=== PATIENT | female | born 1995 ===

== ENCOUNTER 2018-07-17 09:15 | Observation (INO) | payer MEDICAID ==
--- NOTE | 2018-07-17 11:07 | C.PDOC ---
History Of Present Illness 22 y/o female presents to the ED for evaluation of back pain associated with worsening nausea and vomiting since last week. Patient is currently , approximately 6 weeks by date. Of note, patient was seen in the clinic but has not yet had an ultrasound for this . She denies any fever or chills. Patient also reports mild pain to the lower abdomen as well as a headache. She denies any dizziness, chest pain, SOB, or diarrhea. No associated vaginal bleeding or discharge. Time Seen by Provider: 07/17/18 10:28 Chief Complaint (Nursing): Abdominal Pain History Per: Patient History/Exam Limitations: no limitations Onset/Duration Of Symptoms: Days Current Symptoms Are (Timing): Still Present Location Of Pain/Discomfort: Suprapubic Radiation Of Pain To:: Back Associated Symptoms: Nausea, Vomiting Past Medical History Reviewed: Historical Data, Nursing Documentation, Vital Signs Vital Signs: Last Vital Signs Temp 99.9 F H 07/17/18 09:19 Pulse 119 H 07/17/18 09:19 Resp 18 07/17/18 09:19 BP 115/76 07/17/18 09:19 Pulse Ox 98 07/17/18 09:19 - Medical History PMH: No Chronic Diseases Surgical History: No Surg Hx Family History: States: Unknown Family Hx - Social History Hx Tobacco Use: No Hx Alcohol Use: No Hx Substance Use: No - Immunization History Hx Tetanus Toxoid Vaccination: No Hx Influenza Vaccination: No Hx Pneumococcal Vaccination: No Review Of Systems Except As Marked, All Systems Reviewed And Found Negative. Constitutional: Negative for: Fever, Chills Cardiovascular: Negative for: Chest Pain Respiratory: Negative for: Cough, Shortness of Breath Gastrointestinal: Positive for: Nausea, Vomiting, Abdominal Pain (lower). Negative for: Diarrhea, Hematemesis Genitourinary: Negative for: Dysuria, Frequency, Vaginal Discharge, Vaginal Bleeding Musculoskeletal: Positive for: Back Pain Neurological: Positive for: Headache. Negative for: Weakness, Dizziness Physical Exam - Physical Exam Appears: Non-toxic, No Acute Distress Skin: Warm, Dry, No Rash Head: Atraumatic, Normacephalic Eye(s): bilateral: Normal Inspection, PERRL, EOMI Nose: Normal Oral Mucosa: Moist Neck: Normal ROM Chest: Symmetrical Cardiovascular: Rhythm Regular, No Murmur Respiratory: Normal Breath Sounds, No Accessory Muscle Use Gastrointestinal/Abdominal: Soft, Tenderness (suprapubic), No Guarding, No Rebound Back: Normal Inspection, No CVA Tenderness, No Vertebral Tenderness Extremity: Bilateral: Atraumatic, Normal Color And Temperature Neurological/Psych: Oriented x3, Normal Speech ED Course And Treatment - Laboratory Results Result Diagrams: 07/17/18 11:27 07/17/18 11:27 ECG Rhythm: Sinus Tachycardia Rate From EC O2 Sat by Pulse Oximetry: 98 (RA) Pulse Ox Interpretation: Normal - CT Scan/US Pelvic/Transvag US Other Rad Studies (CT/US): Read By Radiologist, Radiology Report Reviewed CT/US Interpretation: Accession No. : [id number]. Patient Name / ID : NOLVIA CHOE / [id number]. Exam Date : 07/17/2018 12:13:17 ( Approved ). Study Comment : Sex / Age : F / 22Y. Creator : Jackelyn Knowles MD. Dictator : Jackelyn Knowles MD. Rn Mobile : Elastic Attacher Chainstitch : Jackelyn Knowles MD. Approver2 : Report Date : 07/17/2018 12:57:39. My Comment : . Date of service: 07/17/2018. Indication: pelvic and low back pain, vomiting. Comparison: None available. Technique: Real-time transabdominal pelvic ultrasound was performed. In addition a transvaginal pelvic ultrasound was necessary to better depict pelvic anatomy. Findings: The uterus measures approximately 7.8 x 4.9 x 6.7 cm. Retroverted. Cervix length measures approximately 3.1 cm. There is a single intrauterine fetus present. 2 mm yolk sac. The gestational sac measures 2.1 cm and is compatible with a gestational age of 6 weeks 4 days. The crown-rump length measures 0.5 cm and is compatible with a gestational age of 6 weeks 2 days. 0.4 x 0.3 cm subchorionic hemorrhage noted. There is heart motion which measured 126.3 BPM. The right ovary measures 3.3 x 2.5 x 3.0 cm. The left ovary measures 3.1 x 1.7 x 3.3 cm and contains 1.4 x 1.9 x 2.1 cm probable corpus luteal cyst. Blood flow demonstrated to both ovaries. Impression: Live single intrauterine with estimated gestational age 6 weeks 4 days by gestational sac calculation and 6 weeks 2 days by crown-rump length calculation. heart rate 126.3 bpm. 0.4 x 0.3 cm subchorionic hemorrhage noted. Advise an anomaly screen at 16-18 weeks gestational age. 1.4 x 1.9 x 2.1 cm probable corpus luteal cyst. Progress Note: Blood work and urine sent for analysis. Administered 1 bolus IVF and 4 mg IV zofran. Pending Pelvic/Transvag ultrasound. Labs reviewed. Beta-HCG is 60,058. Ultrasound shows IUP with gestational age 6 weeks 4 days. + heart rate 126bpm. 13:45 Informed by RN that on repeat vitals, patient spiked a high fever with temp of 102, and blood pressure has decreased to 88/54. VBG and flu swab ordered. Administered 2nd liter IV fluids and 975mg PO Tylenol. Blood gas is unremarkable, lactate is wnl. Still pending flu result. 14:33 + flu A. Patient informed of result. 3rd bolus IV fluids infusing. On repeat vitals, patient is still tachycardic. Discussed case with ED attending Dr. Cabrera, recommends LR fluids. 18:00 Patient is persistently tachycardic despite receiving 4L of fluids. Spoke with Dr. Bart Campbell, patient accepted to serv ice under Dr. Stevens. Spoke with OBGYN , will consult. - Physician Consult Information Physician Contacted: Bart Campbell Outcome Of Conversation: accepted to hospitalist service Disposition - Disposition Disposition Time: 18:15 Condition: FAIR - Clinical Impression Clinical Impression: Influenza A, Early stage of , Tachycardia - PA / INFORMATION MANAGEMENT MANAGER / Resident Statement MD/DO has reviewed & agrees with the documentation as recorded. - Scribe Statement The provider has reviewed the documentation as recorded by the Scribe Homa Piper All medical record entries made by the Lorenzaibnatalio were at my direction and personally dictated by me. I have reviewed the chart and agree that the record accurately reflects my personal performance of the history, physical exam, medical decision making, and the department course for this patient. I have also personally directed, reviewed, and agree with the discharge instructions and disposition. Decision To Admit - Pt Status Changed To: Hospital Disposition Of: Observation - . Bed Request Type: Telemetry Admitting Physician: Vernon Stevens Patient Diagnosis: Influenza A, Early stage of , Tachycardia
[2018-07-17] MEDS ORDERED: Sodium Chloride 0.9% 1,000 ML IV STA ×3 (11:18→14:57)
[2018-07-17 11:37] LABS: BASO % 0.6 % (0.0-2.0); EOS % 0.3 % (0.0-4.0); HEMOGLOBIN 13.5 g/dL (11.0-16.0); LYMPH # 0.4 K/uL (1.0-4.3); MEAN CELL VOLUME 95.7 fL (81.0-99.0); MEAN CORPUSCULAR HEMOGLOBIN 32.4 pg (27.0-31.0); MEAN CORPUSCULAR HGB CONC 33.8 g/dL (33.0-37.0); MEAN PLATELET VOLUME 8.7 fL (7.2-11.7); MONO # 0.6 K/uL (0.0-0.8); MONO % 15.3 % (0.0-10.0); NEUT # 2.8 K/uL (1.8-7.0); NEUT % 72.8 % (50.0-75.0); NRBC % 0.1 % (0.0-2.0); RBC 4.18 Mil/uL (3.80-5.20); RED CELL DISTRIBUTION WIDTH 12.3 % (11.5-14.5); WHITE BLOOD COUNT 3.9 K/uL (4.8-10.8)
[2018-07-17 11:38] LABS: HCG,QUALITATIVE URINE POSITIVE (NEGATIVE)
[2018-07-17 11:42] LABS: SQUAMOUS EPITHIAL 6 /hpf (0-5); URINE BACTERIA RARE (<OCC); URINE BILIRUBIN NEGATIVE (NEGATIVE); URINE BLOOD NEGATIVE (NEGATIVE); URINE CLARITY Hazy (Clear); URINE COLOR Amber (YELLOW); URINE GLUCOSE (UA) NORMAL (Normal); URINE LEUKOCYTE ESTERASE NEG Leu/uL (Negative); URINE PROTEIN 1+ mg/dL (NEGATIVE)
[2018-07-17] MEDS ORDERED: Sodium Chloride 0.9% 1,000 ML ONE ×2 (11:44→15:16)
[2018-07-17 11:53] LABS: ALB/GLOB RATIO 1.5 (1.0-2.1); ALBUMIN 4.6 g/dL (3.5-5.0); ALT/SGPT 19 U/L (9-52); AST/SGOT 26 U/L (14-36); BLOOD UREA NITROGEN 5 mg/dL (7-17); CALCIUM 9.3 mg/dl (8.6-10.4); GFR NON-AFRICAN AMERICAN > 60
--- NOTE | 2018-07-17 13:01 | US ---
Date of service: 07/17/2018 Indication: pelvic and low back pain, vomiting Comparison: None available Technique: Real-time transabdominal pelvic ultrasound was performed. In addition a transvaginal pelvic ultrasound was necessary to better depict pelvic anatomy. Findings: The uterus measures approximately 7.8 x 4.9 x 6.7 cm. Retroverted. Cervix length measures approximately 3.1 cm. There is a single intrauterine fetus present. 2 mm yolk sac. The gestational sac measures 2.1 cm and is compatible with a gestational age of 6 weeks 4 days. The crown-rump length measures 0.5 cm and is compatible with a gestational age of 6 weeks 2 days. 0.4 x 0.3 cm subchorionic hemorrhage noted. There is heart motion which measured 126.3 BPM. The right ovary measures 3.3 x 2.5 x 3.0 cm. The left ovary measures 3.1 x 1.7 x 3.3 cm and contains 1.4 x 1.9 x 2.1 cm probable corpus luteal cyst. Blood flow demonstrated to both ovaries. Impression: Live single intrauterine with estimated gestational age 6 weeks 4 days by gestational sac calculation and 6 weeks 2 days by crown-rump length calculation. heart rate 126.3 bpm. 0.4 x 0.3 cm subchorionic hemorrhage noted. Advise an anomaly screen at 16-18 weeks gestational age 1.4 x 1.9 x 2.1 cm probable corpus luteal cyst.
[2018-07-17 14:08] LABS: VENOUS BLOOD GAS BASE EXCESS -1.3 mmol/L (0.0-2.0); VENOUS BLOOD GAS PCO2 46 mmHg (40-60); VENOUS BLOOD GAS PO2 22 mm/Hg (30-55); VENOUS BLOOD PH 7.34 (7.32-7.43)
[2018-07-17] MEDS ORDERED: Lactated Ringer's 1,000 ML IV ONE (17:01)
[2018-07-17] MEDS ORDERED: Lactated Ringer's 1,000 ML ONE (17:13)
[2018-07-17 17:45] LABS: VENOUS BLOOD GAS BASE EXCESS -4.1 mmol/L (0.0-2.0); VENOUS BLOOD GAS PCO2 41 mmHg (40-60); VENOUS BLOOD GAS PO2 31 mm/Hg (30-55); VENOUS BLOOD PH 7.33 (7.32-7.43)
--- NOTE | 2018-07-17 19:31 | CP.PCM.HP ---
<AubreeRicky - Last Filed: 07/17/18 22:34> History of Present Illness - History of Present Illness History of Present Illness: PGY-1 History and Physical for Dr. Stevens Patient is a 22 year old female with no significant past medical history presenting to ED with lower back pain with associated nausea and NBNB vomiting that began last . The vomiting is worse after meals. She also endorses mild headaches. Patient is approximately 6 weeks and has been seen in this clinic where she received multivitamins but has yet to have ultrasound for this . No fevers/chills, dizziness, chest pain, palpitations, sob, cough, dysuria, abnormal discharge or bleeding, dyspareunia, pelvic pain, or changes in bowel habit. PMHx: None PSHX: None Allergies: NKDA Home Meds: Family Hx: unknown Social Hx: denies alcohol, tobacco, or illicit drug use PMD: Clinic Present on Admission - Present on Admission Any Indicators Present on Admission: No Review of Systems - Review of Systems All systems: reviewed and no additional remarkable complaints except Review of Systems: as per HPI Past Patient History - Past Social History Smoking Status: Never Smoked - PSYCHIATRIC Hx Substance Use: No - SURGICAL HISTORY Hx Surgeries: No - ANESTHESIA Hx Anesthesia: No Meds Allergies/Adverse Reactions: Allergies Allergy/AdvReac Type Severity Reaction Status Date / Time No Known Allergies Allergy Unverified 07/17/18 09:23 Physical Exam - Constitutional Appears: Non-toxic, No Acute Distress - Head Exam Head Exam: ATRAUMATIC, NORMAL INSPECTION, NORMOCEPHALIC - Eye Exam Eye Exam: EOMI, Normal appearance, PERRL Pupil Exam: NORMAL ACCOMODATION - ENT Exam ENT Exam: Mucous Membranes Moist, Normal Exam - Neck Exam Neck exam: Positive for: Full Rom, Normal Inspection. Negative for: Lymphadenopathy, Tenderness, Thyromegaly - Respiratory Exam Respiratory Exam: Clear to Auscultation Bilateral, NORMAL BREATHING PATTERN. absent: Accessory Muscle Use, Rales, Rhonchi, Wheezes, Respiratory Distress, Stridor - Cardiovascular Exam Cardiovascular Exam: Tachycardia, +S1, +S2 - GI/Abdominal Exam GI & Abdominal Exam: Normal Bowel Sounds, Soft, Tenderness (suprapubic). absent: Distended, Firm, Guarding, Rebound, Rigid - Exam External exam: NORMAL EXTERNAL EXAM. absent: Erythema, Lacerations, Lesions - Extremities Exam Extremities exam: Positive for: normal capillary refill, normal inspection, pedal pulses present. Negative for: calf tenderness, pedal edema - Back Exam Back exam: NORMAL INSPECTION. absent: CVA tenderness (L), CVA tenderness (R) - Neurological Exam Neurological exam: Alert, CN II-XII Intact, Oriented x3 - Psychiatric Exam Psychiatric exam: Normal Affect, Normal Mood - Skin Skin Exam: Dry, Intact, Normal Color, Warm Results - Vital Signs Recent Vital Signs: Last Vital Signs Temp 100.1 F H 07/17/18 17:55 Pulse 120 H 07/17/18 17:55 Resp 18 07/17/18 17:55 BP 112/65 07/17/18 17:55 Pulse Ox 98 07/17/18 19:02 - Labs Result Diagrams: 07/17/18 11:27 07/17/18 11:27 Labs: Laboratory Results - last 24 hr 07/17/18 07/17/18 07/17/18 11:27 11:27 11:27 WBC 3.9 L RBC 4.18 Hgb 13.5 Hct 40.0 MCV 95.7 MCH 32.4 H MCHC 33.8 RDW 12.3 Plt Count 224 MPV 8.7 Neut % (Auto) 72.8 Lymph % (Auto) 11.0 L [place] % (Auto) 15.3 H Eos % (Auto) 0.3 Baso % (Auto) 0.6 Neut # (Auto) 2.8 Lymph # (Auto) 0.4 L [place] # (Auto) 0.6 Eos # (Auto) 0.0 Baso # (Auto) 0.0 pO2 VBG pH VBG pCO2 VBG HCO3 VBG Total CO2 VBG O2 Sat (Calc) VBG Base Excess VBG Potassium Glucose Lactate Sodium 134 Potassium 3.8 Chloride 100 Carbon Dioxide 24 Anion Gap 15 BUN 5 L Creatinine 0.6 L Est GFR ( Amer) > 60 Est GFR (Non-Af Amer) > 60 Random Glucose 87 Calcium 9.3 Total Bilirubin 0.6 AST 26 ALT 19 Alkaline Phosphatase 57 Total Protein 7.7 Albumin 4.6 Globulin 3.1 Albumin/Globulin Ratio 1.5 TSH 3rd Generation Beta HCG, Quant 90368.00 Venous Blood Potassium Urine Color Sol Urine Clarity Hazy Urine pH 6.0 Ur Specific [place] 1.028 Urine Protein 1+ H Urine Glucose (UA) Normal Urine Ketones 2+ H Urine Blood Negative Urine Nitrate Negative Urine Bilirubin Negative Urine Urobilinogen 2.0 H Ur Leukocyte Esterase Neg Urine WBC (Auto) 2 Urine RBC (Auto) 3 Ur Squamous Epith Cells 6 H Urine Bacteria Rare Urine HCG, Qual Positive Influenza Typ A,B (EIA) 07/17/18 07/17/18 07/17/18 14:03 14:04 17:41 WBC RBC Hgb Hct MCV MCH MCHC RDW Plt Count MPV Neut % (Auto) Lymph % (Auto) [place] % (Auto) Eos % (Auto) Baso % (Auto) Neut # (Auto) Lymph # (Auto) [place] # (Auto) Eos # (Auto) Baso # (Auto) pO2 22 L 31 VBG pH 7.34 7.33 VBG pCO2 46 41 VBG HCO3 22.2 20.6 VBG Total CO2 26.2 22.9 VBG O2 Sat (Calc) 42.4 66.9 H VBG Base Excess -1.3 L -4.1 L VBG Potassium 3.3 L 3.2 L Glucose 77 97 Lactate 1.9 1.2 Sodium 136.0 137.0 Potassium Chloride 104.0 110.0 H Carbon Dioxide Anion Gap BUN Creatinine Est GFR ( Amer) Est GFR (Non-Af Amer) Random Glucose Calcium Total Bilirubin AST ALT Alkaline Phosphatase Total Protein Albumin Globulin Albumin/Globulin Ratio TSH 3rd Generation Beta HCG, Quant Venous Blood Potassium 3.3 L 3.2 L Urine Color Urine Clarity Urine pH Ur Specific [place] Urine Protein Urine Glucose (UA) Urine Ketones Urine Blood Urine Nitrate Urine Bilirubin Urine Urobilinogen Ur Leukocyte Esterase Urine WBC (Auto) Urine RBC (Auto) Ur Squamous Epith Cells Urine Bacteria Urine HCG, Qual Influenza Typ A,B (EIA) Pos for influenza a H 07/17/18 18:26 WBC RBC Hgb Hct MCV MCH MCHC RDW Plt Count MPV Neut % (Auto) Lymph % (Auto) [place] % (Auto) Eos % (Auto) Baso % (Auto) Neut # (Auto) Lymph # (Auto) [place] # (Auto) Eos # (Auto) Baso # (Auto) pO2 VBG pH VBG pCO2 VBG HCO3 VBG Total CO2 VBG O2 Sat (Calc) VBG Base Excess VBG Potassium Glucose Lactate Sodium Potassium Chloride Carbon Dioxide Anion Gap BUN Creatinine Est GFR ( Amer) Est GFR (Non-Af Amer) Random Glucose Calcium Total Bilirubin AST ALT Alkaline Phosphatase Total Protein Albumin Globulin Albumin/Globulin Ratio TSH 3rd Generation 0.40 L Beta HCG, Quant Venous Blood Potassium Urine Color Urine Clarity Urine pH Ur Specific [place] Urine Protein Urine Glucose (UA) Urine Ketones Urine Blood Urine Nitrate Urine Bilirubin Urine Urobilinogen Ur Leukocyte Esterase Urine WBC (Auto) Urine RBC (Auto) Ur Squamous Epith Cells Urine Bacteria Urine HCG, Qual Influenza Typ A,B (EIA) Assessment & Plan - Assessment and Plan (Free Text) Assessment: 22 year old female with no pmhx presenting with back pain associated with worsening nausea/vomiting for 1 week, found to be flu positive. Plan: Influenza -patient febrile, T max 102.7 -no leukocytosis noted -serology: influenza A positive -Droplet precautions -UA: 1+ protein, 2+ketones, rare bacteria -f/u BCx, Urine Cx -IVF -Tamiflu 75 mg PO BID x 5 days -Tylenol q6h prn for fevers -zofran 4 mg IVP q4 prn for nausea Intrauterine -Pelvic/transvaginal U/S: Live single intrauterine with estimated gestational age 6 weeks 4 days by gestational sac calculation and 6 weeks 2 days by crown-rump length calculation. heart rate 126.3 bpm. 0.4 x 0.3 cm subchorionic hemorrhage noted. Advise an anomaly screen at 16-18 weeks gestational age. 1.4 x 1.9 x 2.1 cm probable corpus luteal cyst. -GEOPHYSICAL ENGINEER (Dr. Garland) consulted PPx, Diet, Disposition -DVT ppx: scds -GI ppx: not indicated -Diet: HHD Case discussed with Dr. Rodney Mak DO, PGY-1 <Vernon Stevens P - Last Filed: 07/18/18 08:59> Results - Vital Signs Recent Vital Signs: Last Vital Signs Temp 98.5 F 07/18/18 08:04 Pulse 95 H 07/18/18 08:04 Resp 20 07/18/18 08:04 BP 91/54 L 07/18/18 08:04 Pulse Ox 98 07/18/18 08:04 - Labs Result Diagrams: 07/18/18 05:42 07/18/18 05:42 Labs: Laboratory Results - last 24 hr 07/17/18 07/17/18 07/17/18 11:27 11:27 11:27 WBC 3.9 L RBC 4.18 Hgb 13.5 Hct 40.0 MCV 95.7 MCH 32.4 H MCHC 33.8 RDW 12.3 Plt Count 224 MPV 8.7 Neut % (Auto) 72.8 Lymph % (Auto) 11.0 L [place] % (Auto) 15.3 H Eos % (Auto) 0.3 Baso % (Auto) 0.6 Neut # (Auto) 2.8 Lymph # (Auto) 0.4 L [place] # (Auto) 0.6 Eos # (Auto) 0.0 Baso # (Auto) 0.0 pO2 VBG pH VBG pCO2 VBG HCO3 VBG Total CO2 VBG O2 Sat (Calc) VBG Base Excess VBG Potassium Glucose Lactate Sodium 134 Potassium 3.8 Chloride 100 Carbon Dioxide 24 Anion Gap 15 BUN 5 L Creatinine 0.6 L Est GFR ( Amer) > 60 Est GFR (Non-Af Amer) > 60 Random Glucose 87 Calcium 9.3 Phosphorus Magnesium Total Bilirubin 0.6 AST 26 ALT 19 Alkaline Phosphatase 57 Total Protein 7.7 Albumin 4.6 Globulin 3.1 Albumin/Globulin Ratio 1.5 Free T4 TSH 3rd Generation Beta HCG, Quant 77683.00 Venous Blood Potassium Urine Color Sol Urine Clarity Hazy Urine pH 6.0 Ur Specific [place] 1.028 Urine Protein 1+ H Urine Glucose (UA) Normal Urine Ketones 2+ H Urine Blood Negative Urine Nitrate Negative Urine Bilirubin Negative Urine Urobilinogen 2.0 H Ur Leukocyte Esterase Neg Urine WBC (Auto) 2 Urine RBC (Auto) 3 Ur Squamous Epith Cells 6 H Urine Bacteria Rare Urine HCG, Qual Positive Urine Opiates Screen Urine Methadone Screen Ur Barbiturates Screen Ur Phencyclidine Scrn Ur Amphetamines Screen U Benzodiazepines Scrn U Oth Cocaine Metabols U Cannabinoids Screen Influenza Typ A,B (EIA) 07/17/18 07/17/18 07/17/18 14:03 14:04 17:41 WBC RBC Hgb Hct MCV MCH MCHC RDW Plt Count MPV Neut % (Auto) Lymph % (Auto) [place] % (Auto) Eos % (Auto) Baso % (Auto) Neut # (Auto) Lymph # (Auto) [place] # (Auto) Eos # (Auto) Baso # (Auto) pO2 22 L 31 VBG pH 7.34 7.33 VBG pCO2 46 41 VBG HCO3 22.2 20.6 VBG Total CO2 26.2 22.9 VBG O2 Sat (Calc) 42.4 66.9 H VBG Base Excess -1.3 L -4.1 L VBG Potassium 3.3 L 3.2 L Glucose 77 97 Lactate 1.9 1.2 Sodium 136.0 137.0 Potassium Chloride 104.0 110.0 H Carbon Dioxide Anion Gap BUN Creatinine Est GFR ( Amer) Est GFR (Non-Af Amer) Random Glucose Calcium Phosphorus Magnesium Total Bilirubin AST ALT Alkaline Phosphatase Total Protein Albumin Globulin Albumin/Globulin Ratio Free T4 TSH 3rd Generation Beta HCG, Quant Venous Blood Potassium 3.3 L 3.2 L Urine Color Urine Clarity Urine pH Ur Specific [place] Urine Protein Urine Glucose (UA) Urine Ketones Urine Blood Urine Nitrate Urine Bilirubin Urine Urobilinogen Ur Leukocyte Esterase Urine WBC (Auto) Urine RBC (Auto) Ur Squamous Epith Cells Urine Bacteria Urine HCG, Qual Urine Opiates Screen Urine Methadone Screen Ur Barbiturates Screen Ur Phencyclidine Scrn Ur Amphetamines Screen U Benzodiazepines Scrn U Oth Cocaine Metabols U Cannabinoids Screen Influenza Typ A,B (EIA) Pos for influenza a H 07/17/18 07/17/18 07/18/18 18:26 19:35 05:42 WBC 2.5 L RBC 3.94 Hgb 12.5 Hct 37.3 MCV 94.9 MCH 31.7 H MCHC 33.4 RDW 11.8 Plt Count 170 MPV 8.9 Neut % (Auto) 49.6 L Lymph % (Auto) 20.5 [place] % (Auto) 29.6 H Eos % (Auto) 0.1 Baso % (Auto) 0.2 Neut # (Auto) 1.3 L Lymph # (Auto) 0.5 L [place] # (Auto) 0.8 Eos # (Auto) 0.0 Baso # (Auto) 0.0 pO2 VBG pH VBG pCO2 VBG HCO3 VBG Total CO2 VBG O2 Sat (Calc) VBG Base Excess VBG Potassium Glucose Lactate Sodium Potassium Chloride Carbon Dioxide Anion Gap BUN Creatinine Est GFR ( Amer) Est GFR (Non-Af Amer) Random Glucose Calcium Phosphorus Magnesium Total Bilirubin AST ALT Alkaline Phosphatase Total Protein Albumin Globulin Albumin/Globulin Ratio Free T4 TSH 3rd Generation 0.40 L Beta HCG, Quant Venous Blood Potassium Urine Color Urine Clarity Urine pH Ur Specific [place] Urine Protein Urine Glucose (UA) Urine Ketones Urine Blood Urine Nitrate Urine Bilirubin Urine Urobilinogen Ur Leukocyte Esterase Urine WBC (Auto) Urine RBC (Auto) Ur Squamous Epith Cells Urine Bacteria Urine HCG, Qual Urine Opiates Screen Negative Urine Methadone Screen Negative Ur Barbiturates Screen Negative Ur Phencyclidine Scrn Negative Ur Amphetamines Screen Negative U Benzodiazepines Scrn Negative U Oth Cocaine Metabols Negative U Cannabinoids Screen Negative Influenza Typ A,B (EIA) 07/18/18 07/18/18 05:42 05:42 WBC RBC Hgb Hct MCV MCH MCHC RDW Plt Count MPV Neut % (Auto) Lymph % (Auto) [place] % (Auto) Eos % (Auto) Baso % (Auto) Neut # (Auto) Lymph # (Auto) [place] # (Auto) Eos # (Auto) Baso # (Auto) pO2 VBG pH VBG pCO2 VBG HCO3 VBG Total CO2 VBG O2 Sat (Calc) VBG Base Excess VBG Potassium Glucose Lactate Sodium 133 Potassium 3.4 L Chloride 102 Carbon Dioxide 22 Anion Gap 12 BUN 3 L Creatinine 0.5 L Est GFR ( Amer) > 60 Est GFR (Non-Af Amer) > 60 Random Glucose 115 H D Calcium 8.3 L Phosphorus 2.8 Magnesium 1.7 Total Bilirubin 0.3 AST 22 ALT 17 Alkaline Phosphatase 47 Total Protein 6.4 Albumin 3.8 Globulin 2.6 Albumin/Globulin Ratio 1.5 Free T4 0.70 L TSH 3rd Generation Beta HCG, Quant Venous Blood Potassium Urine Color Urine Clarity Urine pH Ur Specific [place] Urine Protein Urine Glucose (UA) Urine Ketones Urine Blood Urine Nitrate Urine Bilirubin Urine Urobilinogen Ur Leukocyte Esterase Urine WBC (Auto) Urine RBC (Auto) Ur Squamous Epith Cells Urine Bacteria Urine HCG, Qual Urine Opiates Screen Urine Methadone Screen Ur Barbiturates Screen Ur Phencyclidine Scrn Ur Amphetamines Screen U Benzodiazepines Scrn U Oth Cocaine Metabols U Cannabinoids Screen Influenza Typ A,B (EIA) Attending/Attestation - Attestation I have personally seen and examined this patient.: Yes I have fully participated in the care of the patient.: Yes I have reviewed all pertinent clinical information: Yes Notes (Text): 07/18/18 08:58 Clinically flu, no sighs of clear pna, no sob, c/o some cough and nausea/vomiting 6 wks IU Temp spike Plan Continue tamiflu Supportive care Procalcitonin if elevated emperic abx See orders for detail.
[2018-07-17 19:56] LABS: BARBITURATES, UR NEGATIVE (NEGATIVE); OPIATES, UR NEGATIVE (NEGATIVE); PHENCYCLIDINE, UR NEGATIVE (NEGATIVE)
[2018-07-17 19:57] LABS: BENZODIAZEPINES, UR NEGATIVE (NEGATIVE)
--- NOTE | 2018-07-17 20:08 | CP.PCM.CON ---
History of Present Illness - History of Present Illness History of Present Illness: Asked by JOAN Alvarez to see patient: 6 weeks , admitted for the flu with tachycarida and low blood pressure Patient received in E.D., stretcher #7 in position, wearing mask. FOB present. Patient is awake, alert, oriented to time person and place. Pleasant and cooperative 22 y.o. , LMP 06/02/18, EGA 6w 5d, known to be (S/P EPT beginning of June - positive. Keeping the ). C/O low back pain onset last night. Concerned as it continued today and came to E.D. for evaluation. Reports vomiting after each meal since beginning of last week. Denies LOC, dizziness. Denies fever, chills, body or muscle aches. FOB, "this is so surprising as she felt fine". Denies vaginal bleeding, or lower abdominal pain. 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 Denies STIs PMH: denies PSH: denies NKDA Meds: OTC PNV Soc Hx: denies tobacco, illicit drug or EtOH use. Lives with FOB x 4 months; together x 5 months. Unemployed. Fam Hx: Mother alive 53 - HTN. Father alive 60 - no known med issues. No other known fam med hx Review of Systems - Review of Systems Systems not reviewed;Unavailable: Unstable Vital Signs All systems: reviewed and no additional remarkable complaints except - Gastrointestinal Gastrointestinal: As Per HPI Past Patient History - Infectious Disease Hx of Infectious Diseases: None - Tetanus Immunizations Tetanus Immunization: Unknown - Past Medical History & Family History Past Medical History?: No Pertinent Family History: Mother - hypertension - Past Social History Smoking Status: Never Smoked Alcohol: None Drugs: Denies Home Situation {Lives}: Other - CARDIAC Hx Cardiac Disorders: No - PULMONARY Hx Respiratory Disorders: No - NEUROLOGICAL Hx Neurological Disorder: No - HEENT Hx HEENT Problems: No - ENDOCRINE/METABOLIC Hx Endocrine Disorders: No - HEMATOLOGICAL/ONCOLOGICAL Hx Blood Disorders: No - INTEGUMENTARY Hx Dermatological Problems: No - MUSCULOSKELETAL/RHEUMATOLOGICAL Hx Musculoskeletal Disorders: No - GASTROINTESTINAL Hx Gastrointestinal Disorders: No - GENITOURINARY/GYNECOLOGICAL Hx Genitourinary Disorders: No LMP:: 06/02/18 : 1 Para: 0 Termination of : 0 - PSYCHIATRIC Hx Psychophysiologic Disorder: No Hx Substance Use: No - SURGICAL HISTORY Hx Surgeries: No - ANESTHESIA Hx Anesthesia: No Meds Allergies/Adverse Reactions: Allergies Allergy/AdvReac Type Severity Reaction Status Date / Time No Known Allergies Allergy Unverified 07/17/18 09:23 Physical Exam - Constitutional Appears: Well, No Acute Distress - Head Exam Head Exam: ATRAUMATIC, NORMOCEPHALIC - Neck Exam Neck exam: Positive for: Full Rom - Respiratory Exam Respiratory Exam: NORMAL BREATHING PATTERN - Cardiovascular Exam Cardiovascular Exam: Tachycardia - GI/Abdominal Exam GI & Abdominal Exam: Soft (non tender in all quadrants) - Rectal Exam Rectal Exam: Deferred (deferred) - Extremities Exam Extremities exam: Positive for: full ROM, normal inspection - Back Exam Back exam: NORMAL INSPECTION - Neurological Exam Neurological exam: Alert, Oriented x3 - Psychiatric Exam Psychiatric exam: Normal Affect, Normal Mood - Skin Skin Exam: Dry, Pallor Results - Vital Signs Recent Vital Signs: Last Vital Signs Temp 100.1 F H 07/17/18 17:55 Pulse 120 H 07/17/18 17:55 Resp 18 07/17/18 17:55 BP 112/65 07/17/18 17:55 Pulse Ox 98 07/17/18 19:02 - Labs Result Diagrams: 07/17/18 11:27 07/17/18 11:27 Labs: Laboratory Results - last 24 hr 07/17/18 07/17/18 07/17/18 11:27 11:27 11:27 WBC 3.9 L RBC 4.18 Hgb 13.5 Hct 40.0 MCV 95.7 MCH 32.4 H MCHC 33.8 RDW 12.3 Plt Count 224 MPV 8.7 Neut % (Auto) 72.8 Lymph % (Auto) 11.0 L [place] % (Auto) 15.3 H Eos % (Auto) 0.3 Baso % (Auto) 0.6 Neut # (Auto) 2.8 Lymph # (Auto) 0.4 L [place] # (Auto) 0.6 Eos # (Auto) 0.0 Baso # (Auto) 0.0 pO2 VBG pH VBG pCO2 VBG HCO3 VBG Total CO2 VBG O2 Sat (Calc) VBG Base Excess VBG Potassium Glucose Lactate Sodium 134 Potassium 3.8 Chloride 100 Carbon Dioxide 24 Anion Gap 15 BUN 5 L Creatinine 0.6 L Est GFR ( Amer) > 60 Est GFR (Non-Af Amer) > 60 Random Glucose 87 Calcium 9.3 Total Bilirubin 0.6 AST 26 ALT 19 Alkaline Phosphatase 57 Total Protein 7.7 Albumin 4.6 Globulin 3.1 Albumin/Globulin Ratio 1.5 TSH 3rd Generation Beta HCG, Quant 28125.00 Venous Blood Potassium Urine Color Sol Urine Clarity Hazy Urine pH 6.0 Ur Specific [place] 1.028 Urine Protein 1+ H Urine Glucose (UA) Normal Urine Ketones 2+ H Urine Blood Negative Urine Nitrate Negative Urine Bilirubin Negative Urine Urobilinogen 2.0 H Ur Leukocyte Esterase Neg Urine WBC (Auto) 2 Urine RBC (Auto) 3 Ur Squamous Epith Cells 6 H Urine Bacteria Rare Urine HCG, Qual Positive Influenza Typ A,B (EIA) 07/17/18 07/17/18 07/17/18 14:03 14:04 17:41 WBC RBC Hgb Hct MCV MCH MCHC RDW Plt Count MPV Neut % (Auto) Lymph % (Auto) [place] % (Auto) Eos % (Auto) Baso % (Auto) Neut # (Auto) Lymph # (Auto) [place] # (Auto) Eos # (Auto) Baso # (Auto) pO2 22 L 31 VBG pH 7.34 7.33 VBG pCO2 46 41 VBG HCO3 22.2 20.6 VBG Total CO2 26.2 22.9 VBG O2 Sat (Calc) 42.4 66.9 H VBG Base Excess -1.3 L -4.1 L VBG Potassium 3.3 L 3.2 L Glucose 77 97 Lactate 1.9 1.2 Sodium 136.0 137.0 Potassium Chloride 104.0 110.0 H Carbon Dioxide Anion Gap BUN Creatinine Est GFR ( Amer) Est GFR (Non-Af Amer) Random Glucose Calcium Total Bilirubin AST ALT Alkaline Phosphatase Total Protein Albumin Globulin Albumin/Globulin Ratio TSH 3rd Generation Beta HCG, Quant Venous Blood Potassium 3.3 L 3.2 L Urine Color Urine Clarity Urine pH Ur Specific [place] Urine Protein Urine Glucose (UA) Urine Ketones Urine Blood Urine Nitrate Urine Bilirubin Urine Urobilinogen Ur Leukocyte Esterase Urine WBC (Auto) Urine RBC (Auto) Ur Squamous Epith Cells Urine Bacteria Urine HCG, Qual Influenza Typ A,B (EIA) Pos for influenza a H 07/17/18 18:26 WBC RBC Hgb Hct MCV MCH MCHC RDW Plt Count MPV Neut % (Auto) Lymph % (Auto) [place] % (Auto) Eos % (Auto) Baso % (Auto) Neut # (Auto) Lymph # (Auto) [place] # (Auto) Eos # (Auto) Baso # (Auto) pO2 VBG pH VBG pCO2 VBG HCO3 VBG Total CO2 VBG O2 Sat (Calc) VBG Base Excess VBG Potassium Glucose Lactate Sodium Potassium Chloride Carbon Dioxide Anion Gap BUN Creatinine Est GFR ( Amer) Est GFR (Non-Af Amer) Random Glucose Calcium Total Bilirubin AST ALT Alkaline Phosphatase Total Protein Albumin Globulin Albumin/Globulin Ratio TSH 3rd Generation 0.40 L Beta HCG, Quant Venous Blood Potassium Urine Color Urine Clarity Urine pH Ur Specific [place] Urine Protein Urine Glucose (UA) Urine Ketones Urine Blood Urine Nitrate Urine Bilirubin Urine Urobilinogen Ur Leukocyte Esterase Urine WBC (Auto) Urine RBC (Auto) Ur Squamous Epith Cells Urine Bacteria Urine HCG, Qual Influenza Typ A,B (EIA) Assessment & Plan - Assessment and Plan (Free Text) Assessment: Laboratory and ultrasound reports reviewed by me personally: labs noted for Influenza A (+); U/A ketones 2+. Ultrasound: SIUP, 6w 4d, small subchorionic hemorrhage. Normal ovaries bilaterally with left corpus luteal cyst. 22 y.o. P0, 6w 4d, admitted for management of the "flu" and maternal tachycardia. Vital signs at time of encounter: BP 105/56; HR 111bpm. Normal early gestation; nothing to do. Vomiting in with no electrolyte imbalance. Patient has already taken the steps to initiate care at [facility]. Upon discharge, please encourage patient to make an appointment. No Ob/byn intervention needed at this time. Patient is guarded condition. Plan: Admission and management as per primary medical team Thank you for the pleasure of this consultation - Date & Time Date: 07/17/18 Time: 20:18
[2018-07-17 21:33] VITALS: RESP 20
[2018-07-17] MEDS: Potassium Ch 20mEq in D5-1/2NS 1,000 ML IV SCH (22:50)
[2018-07-18 06:05] LABS: BASO % 0.2 % (0.0-2.0); EOS % 0.1 % (0.0-4.0); HEMOGLOBIN 12.5 g/dL (11.0-16.0); LYMPH # 0.5 K/uL (1.0-4.3); LYMPH % 20.5 % (20.0-40.0); MEAN CELL VOLUME 94.9 fL (81.0-99.0); MEAN CORPUSCULAR HEMOGLOBIN 31.7 pg (27.0-31.0); MEAN CORPUSCULAR HGB CONC 33.4 g/dL (33.0-37.0); MEAN PLATELET VOLUME 8.9 fL (7.2-11.7); MONO # 0.8 K/uL (0.0-0.8); MONO % 29.6 % (0.0-10.0); NEUT # 1.3 K/uL (1.8-7.0); NEUT % 49.6 % (50.0-75.0); NRBC % 0.1 % (0.0-2.0); PLATELET COUNT 170 K/uL (130-400); RBC 3.94 Mil/uL (3.80-5.20); RED CELL DISTRIBUTION WIDTH 11.8 % (11.5-14.5); WHITE BLOOD COUNT 2.5 K/uL (4.8-10.8)
[2018-07-18 06:06] LABS: ALB/GLOB RATIO 1.5 (1.0-2.1); ALBUMIN 3.8 g/dL (3.5-5.0); ALT/SGPT 17 U/L (9-52); AST/SGOT 22 U/L (14-36); BLOOD UREA NITROGEN 3 mg/dL (7-17); CALCIUM 8.3 mg/dl (8.6-10.4); GFR NON-AFRICAN AMERICAN > 60
[2018-07-18 08:06] VITALS: BP 91/54; PULSE 95; TEMP 98.5; O2SAT 98
[2018-07-18] MEDS: Potassium Ch 20mEq in D5-1/2NS 1,000 ML IV SCH (08:11)
[2018-07-18 09:31] LABS: LYMPHOCYTE 24 % (20-40); MONOCYTE 15 % (0-10); NEUTROPHIL 61 % (50-75); TOTAL CELLS COUNTED 100
[2018-07-18 09:33] LABS: PLATELET ESTIMATE NORMAL (NORMAL)
--- NOTE | 2018-07-18 11:04 | CARD ---
APPROVED REPORT Date of service: 07/17/2018 EKG Measurement Heart [id number] <Conclusion> Sinus tachycardia Otherwise normal ECG
--- NOTE | 2018-07-18 11:44 | CP.PCM.DIS ---
Provider - Provider Date of Admission: 07/17/18 18:13 Attending physician: Vernon Stevens MD Consults: 07/17/18 18:58 Physician Consult Routine Comment: Consulting Provider: Aurea Garland Consulting Physician: Aurea Garland Reason for Consult: 6 wks with Influenza A, admitted to medicine Time Spent in preparation of Discharge (in minutes): 35 Diagnosis - Discharge Diagnosis (1) Influenza A Status: Acute Hospital Course - Lab Results Lab Results: Most Recent Lab Values WBC 2.5 K/uL (4.8-10.8) L 07/18/18 05:42 RBC 3.94 Mil/uL (3.80-5.20) 07/18/18 05:42 Hgb 12.5 g/dL (11.0-16.0) 07/18/18 05:42 Hct 37.3 % (34.0-47.0) 07/18/18 05:42 MCV 94.9 fL (81.0-99.0) 07/18/18 05:42 MCH 31.7 pg (27.0-31.0) H 07/18/18 05:42 MCHC 33.4 g/dL (33.0-37.0) 07/18/18 05:42 RDW 11.8 % (11.5-14.5) 07/18/18 05:42 Plt Count 170 K/uL (130-400) 07/18/18 05:42 MPV 8.9 fL (7.2-11.7) 07/18/18 05:42 Neut % (Auto) 49.6 % (50.0-75.0) L 07/18/18 05:42 Lymph % (Auto) 20.5 % (20.0-40.0) 07/18/18 05:42 [place] % (Auto) 29.6 % (0.0-10.0) H 07/18/18 05:42 Eos % (Auto) 0.1 % (0.0-4.0) 07/18/18 05:42 Baso % (Auto) 0.2 % (0.0-2.0) 07/18/18 05:42 Neut # (Auto) 1.3 K/uL (1.8-7.0) L 07/18/18 05:42 Lymph # (Auto) 0.5 K/uL (1.0-4.3) L 07/18/18 05:42 [place] # (Auto) 0.8 K/uL (0.0-0.8) 07/18/18 05:42 Eos # (Auto) 0.0 K/uL (0.0-0.7) 07/18/18 05:42 Baso # (Auto) 0.0 K/uL (0.0-0.2) 07/18/18 05:42 Neutrophils % (Manual) 61 % (50-75) 07/18/18 05:42 Lymphocytes % (Manual) 24 % (20-40) 07/18/18 05:42 Monocytes % (Manual) 15 % (0-10) H 07/18/18 05:42 Platelet Estimate Normal (NORMAL) 07/18/18 05:42 RBC Morphology Normal 07/18/18 05:42 pO2 31 mm/Hg (30-55) 07/17/18 17:41 VBG pH 7.33 (7.32-7.43) 07/17/18 17:41 VBG pCO2 41 mmHg (40-60) 07/17/18 17:41 VBG HCO3 20.6 mmol/L 07/17/18 17:41 VBG Total CO2 22.9 mmol/L (22-28) 07/17/18 17:41 VBG O2 Sat (Calc) 66.9 % (40-65) H 07/17/18 17:41 VBG Base Excess -4.1 mmol/L (0.0-2.0) L 07/17/18 17:41 VBG Potassium 3.2 mmol/L (3.6-5.2) L 07/17/18 17:41 Sodium 137.0 mmol/l (132-148) 07/17/18 17:41 Chloride 110.0 mmol/L (98-107) H 07/17/18 17:41 Glucose 97 mg/dl (65-105) 07/17/18 17:41 Lactate 1.2 mmol/L (0.7-2.1) 07/17/18 17:41 Sodium 133 mmol/L (132-148) 07/18/18 05:42 Potassium 3.4 mmol/L (3.6-5.2) L 07/18/18 05:42 Chloride 102 mmol/L (98-107) 07/18/18 05:42 Carbon Dioxide 22 mmol/L (22-30) 07/18/18 05:42 Anion Gap 12 (10-20) 07/18/18 05:42 BUN 3 mg/dL (7-17) L 07/18/18 05:42 Creatinine 0.5 mg/dL (0.7-1.2) L 07/18/18 05:42 Est GFR ( Amer) > 60 07/18/18 05:42 Est GFR (Non-Af Amer) > 60 07/18/18 05:42 Random Glucose 115 mg/dL (65-105) H D 07/18/18 05:42 Calcium 8.3 mg/dl (8.6-10.4) L 07/18/18 05:42 Phosphorus 2.8 mg/dL (2.5-4.5) 07/18/18 05:42 Magnesium 1.7 mg/dL (1.6-2.3) 07/18/18 05:42 Total Bilirubin 0.3 mg/dL (0.2-1.3) 07/18/18 05:42 AST 22 U/L (14-36) 07/18/18 05:42 ALT 17 U/L (9-52) 07/18/18 05:42 Alkaline Phosphatase 47 U/L (38-126) 07/18/18 05:42 Total Protein 6.4 g/dL (6.3-8.3) 07/18/18 05:42 Albumin 3.8 g/dL (3.5-5.0) 07/18/18 05:42 Globulin 2.6 gm/dL (2.2-3.9) 07/18/18 05:42 Albumin/Globulin Ratio 1.5 (1.0-2.1) 07/18/18 05:42 Free T4 0.70 ng/dL (0.78-2.19) L 07/18/18 05:42 TSH 3rd Generation 0.40 mIU/L (0.46-4.68) L 07/17/18 18:26 Beta HCG, Quant 22673.00 mIU/ML 07/17/18 11:27 Venous Blood Potassium 3.2 mmol/L (3.6-5.2) L 07/17/18 17:41 Urine Color Sol (YELLOW) 07/17/18 11:27 Urine Clarity Hazy (Clear) 07/17/18 11:27 Urine pH 6.0 (5.0-8.0) 07/17/18 11:27 Ur Specific [place] 1.028 (1.003-1.030) 07/17/18 11:27 Urine Protein 1+ mg/dL (NEGATIVE) H 07/17/18 11:27 Urine Glucose (UA) Normal mg/dL (Normal) 07/17/18 11:27 Urine Ketones 2+ mg/dL (NEGATIVE) H 07/17/18 11:27 Urine Blood Negative (NEGATIVE) 07/17/18 11:27 Urine Nitrate Negative (NEGATIVE) 07/17/18 11:27 Urine Bilirubin Negative (NEGATIVE) 07/17/18 11:27 Urine Urobilinogen 2.0 mg/dL (0.2-1.0) H 07/17/18 11:27 Ur Leukocyte Esterase Neg [place]/uL (Negative) 07/17/18 11:27 Urine WBC (Auto) 2 /hpf (0-5) 07/17/18 11:27 Urine RBC (Auto) 3 /hpf (0-3) 07/17/18 11:27 Ur Squamous Epith Cells 6 /hpf (0-5) H 07/17/18 11:27 Urine Bacteria Rare (<OCC) 07/17/18 11:27 Urine HCG, Qual Positive (NEGATIVE) 07/17/18 11:27 Urine Opiates Screen Negative (NEGATIVE) 07/17/18 19:35 Urine Methadone Screen Negative (NEGATIVE) 07/17/18 19:35 Ur Barbiturates Screen Negative (NEGATIVE) 07/17/18 19:35 Ur Phencyclidine Scrn Negative (NEGATIVE) 07/17/18 19:35 Ur Amphetamines Screen Negative (NEGATIVE) 07/17/18 19:35 U Benzodiazepines Scrn Negative (NEGATIVE) 07/17/18 19:35 U Oth Cocaine Metabols Negative (NEGATIVE) 07/17/18 19:35 U Cannabinoids Screen Negative (NEGATIVE) 07/17/18 19:35 Influenza Typ A,B (EIA) Pos for influenza a (NEGATIVE) H 07/17/18 14:03 - Hospital Course Hospital Course: Upon Admission Patient is a 22 year old female with no significant past medical history presenting to ED with lower back pain with associated nausea and NBNB vomiting that began last . The vomiting is worse after meals. She also endorses mild headaches. Patient is approximately 6 weeks and has been seen in this clinic where she received multivitamins but has yet to have ultra sound for this . No fevers/chills, dizziness, chest pain, palpitations, sob, cough, dysuria, abnormal discharge or bleeding, dyspareunia, pelvic pain, or changes in bowel habit. Hospital Course Patient was admitted for LBP, nausea and vomiting. Patient tested positive for flu. Patient can continue taking tylenol as needed for fevers. Patient should increase fluid intake during flu illness as described above. Patient educated to follow up with [facility] doctor for continued care of baby. U/S shows intact uterine with detectable heart. Discharge Plan 1. Patient is stable for discharge to home as per Dr. Delgado. 2. Patient is educated to take tylenol 650mg (2 tabs) for fever. Patient should drink a lot of fluids such as juices, Gatorade, Pedialyte, and soup. Patient should continue her home folic acid. 3. Patient is educated to followup with [facility] doctor for continued care of her . 4. Patient should return to hospital if symptoms worsen or recur. 5. Patient understands the plan as above and agrees. Discharge Exam - Head Exam Head Exam: ATRAUMATIC, NORMAL INSPECTION, NORMOCEPHALIC - Eye Exam Eye Exam: EOMI, Normal appearance. absent: Nystagmus, Scleral icterus - ENT Exam ENT Exam: Mucous Membranes Moist - Respiratory Exam Respiratory Exam: Clear to PA & Lateral, NORMAL BREATHING PATTERN. absent: Chest Wall Tenderness, Decreased Breath Sounds - Cardiovascular Exam Cardiovascular Exam: REGULAR RHYTHM, +S1, +S2. absent: Tachycardia - GI/Abdominal Exam GI & Abdominal Exam: Normal Bowel Sounds, Soft. absent: Diminished Bowel Sounds, Distended, Firm, Guarding, Tenderness - Extremities Exam Extremities exam: normal inspection - Neurological Exam Neurological exam: Alert, CN II-XII Intact, Oriented x3 - Psychiatric Exam Psychiatric exam: Normal Affect, Normal Mood - Skin Skin Exam: Dry, Intact, Normal Color Discharge Plan - Discharge Medications Prescriptions: Acetaminophen [Tylenol 325mg tab] 650 mg PO Q6 PRN #20 tab PRN Reason: Fever >100.4 F - Follow Up Plan Condition: FAIR Disposition: HOME/ ROUTINE Additional Instructions: 1. Patient is stable for discharge to home as per Dr. Delgado. 2. Patient is educated to take tylenol 650mg (2 tabs) for fever. Patient should drink a lot of fluids such as juices, Gatorade, Pedialyte, and soup. Patient should continue her home folic acid. 3. Patient is educated to followup with [facility] doctor for continued care of her . 4. Patient should return to hospital if symptoms worsen or recur. 5. Patient understands the plan as above and agrees.
== END 2018-07-18 13:14 | disposition home or self-care (01) ==
LOC: C.ER 09:15 → C.9E 18:13 → C.5S 21:13
PROVIDERS: ADMIT Internal Medicine; ATTEND Internal Medicine
DX: O99.511 Diseases of the respiratory system complicating pregnancy, first trimester (principal); J10.1 Influenza due to other identified influenza virus with other respiratory manifestations; O21.0 Mild hyperemesis gravidarum; O26.891 Other specified pregnancy related conditions, first trimester; M54.5 Low back pain; Z3A.01 Less than 8 weeks gestation of pregnancy
CPT/HCPCS: 36415; 76805; 76817; 80053; 81001; 82803; 83735; 84100; 84439; 84443; 84702; 84703; 85025; 87040; 87086; 87804; 93005; 96360; 96374; 99285; G0378; G0480; J2405; J7030; J7120

== ENCOUNTER 2018-08-09 09:32 | Outpatient (CLI) | payer OTHER | END 2018-08-09 09:33 | disposition home or self-care (01) | LOC: C.LAB 09:32 | DX: Z34.80 Encounter for supervision of other normal pregnancy, unspecified trimester (principal) ==

== ENCOUNTER 2018-10-09 12:45 | Outpatient (CLI) | payer OTHER | END 2018-10-09 12:46 | disposition home or self-care (01) | LOC: C.LAB 12:45 | DX: Z34.82 Encounter for supervision of other normal pregnancy, second trimester (principal) ==